=== PATIENT | female | born 1980 | race Caucasian/White ===

== ENCOUNTER 2018-07-02 22:21 | Observation (INO) | payer OTHER ==
[2018-07-02] MEDS ORDERED: NS 0.9% 1000 ML* 1,000 ML IV ONE (22:29)
[2018-07-02 22:50] LABS: ABS Basophils 0.1 10^3/ul (0-0.2); ABS Eosinophils 0.1 10^3/ul (0-0.6); ABS Lymphocytes 2.3 10^3/ul (1.0-4.8); ABS Monocytes 0.5 10^3/ul (0-0.8); ABS Neutrophils 4.8 10^3/ul (1.5-7.7); ABS Nucleated RBC 0 10^3/ul; Eosinophil % 1.4 % (0-6); Hematocrit 31 % (35-47); Hemoglobin 10.4 g/dl (12.0-16.0); Lymphocyte % 29.4 % (25-47); Mean Corpuscular HGB Conc 34 g/dl (31-36); Mean Corpuscular Hemoglobin 31 pg (27-31); Mean Corpuscular Volume 91 fL (80-97); Mean Platelet Volume 6.7 um3 (7.4-10.4); Nucleated Red Blood Cells % 0; Platelet Count 246 10^3/ul (150-450); Red Blood Count 3.35 10^6/ul (4.00-5.40); Red Cell Distribution Width 13 % (10.5-15); White Blood Count 7.8 10^3/ul (3.5-10.8)
--- NOTE | 2018-07-02 22:53 | ED ---
- HPI Summary HPI Summary: 37 yo F who was seen in ED earlier today for completed miscarriage and returns for increased vaginal bleeding. Transvaginal US today showed empty uterus, and endometrial stripe with no suggestion of retained products of conception. stopped developing at 8 weeks, and pt had US last week that had shown single IUP, so there is not concern for ectopic . Pt had pelvic exam by Dr. Dunne with evacuation of clots (no tissue recovered), and Dr. Dunne instilled 800mcg of misoprostol at 18:16pm after discussion of care with Dr. Rae. Pt was DC'd home with her and states she put her son to bed, and then soaked 3 pads provided by the ED in less than 2 hrs, and was weak and lying on the bathroom floor and felt that she might pass out, so returned to the ED for further evaluation. Denies abd pain or cramping. [id number] (with this completed miscarriage today). - History of Current Complaint Chief Complaint: EDVaginalBleeding Stated Complaint: VAGINAL BLEEDING/WEAKNESS Time Seen by Provider: 07/02/18 22:28 Hx Obtained From: Patient Chief Complaint: Vaginal Bleeding Onset/Duration: Started Hours Ago Timing: Constant Severity: Severe Current Severity: Severe Pain Intensity: 0 Location of Pain: None Character: None Aggravating Factors: Nothing Alleviating Factors: Nothing Associated Signs and Symptoms: Positive: Negative - Assessment Hx Now: No - completed Ab today, empty uterus on transvag US today - Allergies/Home Medications Allergies/Adverse Reactions: Allergies Allergy/AdvReac Type Severity Reaction Status Date / Time No Known Allergies Allergy Verified 07/02/18 22:28 PMH/Surg Hx/FS Hx/Imm Hx Previously Healthy: Yes Sensory History: Denies: Hx Legally Blind, Hx Deafness Opthamlomology History: Denies: Hx Legally Blind Neurological History: Denies: Hx Dementia - Surgical History Surgery Procedure, Year, and Place: [place] teeth Infectious Disease History: No Infectious Disease History: Denies: Traveled Outside the [place] in Last 30 Days - Family History Family History: arthritis, Alz - Social History 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 Negative: Diaphoretic Head/Face: Positive: Normal Head/Face Inspection Eyes: Positive: Normal ENT: Positive: Normal ENT inspection Neck: Positive: Supple Respiratory/Lung Sounds: Positive: Clear to Auscultation Cardiovascular: Positive: RRR Abdomen Description: Positive: Nontender, Soft. Negative: Distended, Guarding Bowel Sounds: Positive: Present Musculoskeletal: Positive: Strength/ROM Intact Neurological: Positive: Alert, Oriented to Person Place, Time, Facial Symmetry, Speech Normal Psychiatric: Positive: Normal Diagnostics - Vital Signs Vital Signs Temp Pulse Resp BP Pulse Ox 07/02/18 22:24 97.9 F 95 16 127/78 100 - Laboratory Lab Results: Lab Results 07/02/18 07/02/18 Range/Units 15:42 22:43 WBC 7.8 (3.5-10.8) 10^3/ul RBC 3.35 L (4.00-5.40) 10^6/ul Hgb 10.4 L (12.0-16.0) g/dl Hct 31 L (35-47) % MCV 91 (80-97) fL MCH 31 (27-31) pg MCHC 34 (31-36) g/dl RDW 13 (10.5-15) % Plt Count 246 (150-450) 10^3/ul MPV 6.7 L (7.4-10.4) um3 Neut % (Auto) 61.3 (38-83) % Lymph % (Auto) 29.4 (25-47) % [place] % (Auto) 7.1 H (0-7) % Eos % (Auto) 1.4 (0-6) % Baso % (Auto) 0.8 (0-2) % Absolute Neuts (auto) 4.8 (1.5-7.7) 10^3/ul Absolute Lymphs (auto) 2.3 (1.0-4.8) 10^3/ul Absolute Monos (auto) 0.5 (0-0.8) 10^3/ul Absolute Eos (auto) 0.1 (0-0.6) 10^3/ul Absolute Basos (auto) 0.1 (0-0.2) 10^3/ul Absolute Nucleated RBC 0 10^3/ul Nucleated RBC % 0 Blood Type Pending Antibody Screen Pending Result Diagrams: 07/02/18 22:43 07/02/18 22:43 Lab Statement: Any lab studies that have been ordered have been reviewed, and results considered in the medical decision making process. Re-Evaluation - Re-Evaluation First Eval Re-Evaluation Time: 00:05 Change: Worse Comment: dropped BP to 77/43 with HR 62 when discussing Hb and bleeding. Quickly recovered to BP 102/[address] Dunne at bedside, within 1-2 minutes. Second Eval Re-Evaluation Time: 00:30 Course/Dx - Course Course Of Treatment: 37 yo F with completed miscarriage and vag bleeding given misoprostol 800mcg per vagina at 1816 07/02/18, returned with increased bleeding tonight soaking 3 pads in 2 hrs. Initial Hb was 12.9, now 10.3. Pt still orthostatic after one liter of saline, and had one episode of hypotension. Soaked one pad wearing depends while in the ED 2.5 hrs. Pt will be given second liter of saline now, recheck CBC, and care to Dr. Mccoy pending those results. Dr. Rae will come in to evaluate pt in the ED. - Diagnoses Provider Diagnoses: Vaginal bleeding, Complete miscarriage, Anemia, Orthostatic hypotension - Provider Notifications Discussed Care Of Patient With: Sabine Rae - Await CBC results, hydrate as needed. Time Discussed With Above Provider: 22:35 - 23:30 results of CBC given to Dr. Rae. She advises would transfuse only if less than Hb 7. 0050: Dr. Rae notified that pt is orthostatic. She will come in to evaluate pt. - Critical Care Time Critical Care Time: 30-74 min - 30 mins Discharge - Sign-Out/Discharge Documenting (check all that apply): Sign-Out Patient Signing out patient TO: Humberto Mccoy - 00:30, 07/03/18 with additional NS infusing and second CBC pending and Dr. Rae's evaluation. - Discharge Plan Referrals: No Primary Care Phys,NOPCP [Primary Care Provider] -
[2018-07-02 23:00] LABS: INR 0.98 (0.77-1.02)
[2018-07-03] MEDS ORDERED: NS 0.9% 1000 ML* 1,000 ML BOLUS ONE (00:45)
[2018-07-03 01:16] LABS: ABS Basophils 0 10^3/ul (0-0.2); ABS Eosinophils 0 10^3/ul (0-0.6); ABS Lymphocytes 1.3 10^3/ul (1.0-4.8); ABS Monocytes 0.4 10^3/ul (0-0.8); ABS Nucleated RBC 0 10^3/ul; Eosinophil % 0.6 % (0-6); Hematocrit 23 % (35-47); Lymphocyte % 22.3 % (25-47); Mean Corpuscular HGB Conc 34 g/dl (31-36); Mean Corpuscular Hemoglobin 31 pg (27-31); Mean Corpuscular Volume 92 fL (80-97); Mean Platelet Volume 6.7 um3 (7.4-10.4); Nucleated Red Blood Cells % 0.1; Platelet Count 203 10^3/ul (150-450); Red Blood Count 2.55 10^6/ul (4.00-5.40); Red Cell Distribution Width 13 % (10.5-15); White Blood Count 5.7 10^3/ul (3.5-10.8)
[2018-07-03] MEDS ORDERED: ceFOXitin 2 GM IVPREMIX* 2 GM/50 ML BAG IVPB ONE (01:54)
[2018-07-03] MEDS: oxyCODONE/Acetamin 5/325 MG* TAB PO PRN ×2 (04:50→14:15)
[2018-07-03 05:32] LABS: ABS Basophils 0 10^3/ul (0-0.2); ABS Eosinophils 0 10^3/ul (0-0.6); ABS Lymphocytes 1.5 10^3/ul (1.0-4.8); ABS Monocytes 0.3 10^3/ul (0-0.8); ABS Neutrophils 3.3 10^3/ul (1.5-7.7); ABS Nucleated RBC 0 10^3/ul; Eosinophil % 0.4 % (0-6); Hematocrit 24 % (35-47); Hemoglobin 8.2 g/dl (12.0-16.0); Lymphocyte % 29.4 % (25-47); Mean Corpuscular HGB Conc 34 g/dl (31-36); Mean Corpuscular Hemoglobin 31 pg (27-31); Mean Corpuscular Volume 91 fL (80-97); Mean Platelet Volume 7.1 um3 (7.4-10.4); Nucleated Red Blood Cells % 0.1; Platelet Count 207 10^3/ul (150-450); Red Blood Count 2.63 10^6/ul (4.00-5.40); Red Cell Distribution Width 13 % (10.5-15); White Blood Count 5.2 10^3/ul (3.5-10.8)
--- NOTE | 2018-07-03 06:29 | HP ---
OUTPATIENT OBSERVATION: DATE OF ADMISSION: 07/03/18 ADMISSION DIAGNOSES: 1. Spontaneous at 8 weeks. 2. Anemia. 3. Orthostasis. CHIEF COMPLAINT: Bleeding. HISTORY OF PRESENT ILLNESS: The patient is a 37-year-old 2, para 1-0-1- 1, status post spontaneous loss. The patient was documented 8 and 2/ 7 weeks intrauterine gestational sac with a crown-rump length of 18 mm with no cardiac activity diagnosed on 06/29/18. The patient came to the ER twice now with heavy bleeding after loss. The patient has confirmed passage of intrauterine based on pelvic ultrasound, which was performed through the emergency room on 07/02/18 at 1530. No products of conception identified within the uterine cavity. The endometrial stripe was heterogenous at 12.8 cm. The patient initially came in with bleeding, was discharged to home; however, had a second episode of bleeding at home and re-presented to the emergency room. The hemoglobin on admission was 10.4 and rechecked 4 hours later revealed a hemoglobin of 8 after 2 L of IV fluids. The patient is being assessed by myself; see physical exam. PAST MEDICAL HISTORY: Unremarkable. PAST SURGICAL HISTORY: [place] teeth as a college student. MEDICATIONS: vitamins. ALLERGIES: No known drug allergies. PAST OBSTETRIC HISTORY: She had a normal spontaneous vaginal delivery in 2016. PHYSICAL EXAMINATION CONSTITUTIONAL: Pleasant female. Alert and oriented x3. No apparent distress. VITAL SIGNS: Temperature is 97.9, pulse rate is 95, blood pressure 127/78. Orthostatics were completed. Pulse rate lying down was 68, standing 96. Blood pressure 106/61 lying down, standing up 94/53. LUNGS: Clear to auscultation. CARDIOVASCULAR: Regular rate and rhythm. ABDOMEN: Nontender. Uterus is not palpable above the pubic symphysis. PELVIC EXAM: Large amount of clot removed, approximately 50 cc from the vagina. There is a small remnant of the sac sitting at the os, which was removed with the ring forceps. Bimanual exam: Uterus is nontender and anteverted with minimal bleeding, once clot, remnant of sac removed from the cervical os. EXTREMITIES: With good capillary refill. ASSESSMENT AND PLAN: The patient with spontaneous at 8 weeks and 2/7 days with orthostasis. The plan is to admit in outpatient observation, reassess CBC in approximately 3 to 4 hours, continue with IV fluids. If hemoglobin remains greater than 7, we will discharge to home in stable condition. If hemoglobin is less than 7, we will discuss with the patient blood products. Bleeding appears to be significantly decreased and we will send a portion of gestational sac to Pathology to confirm diagnosis. [id number]/[facility] [place] #: [id number] MTDD
[2018-07-03 12:42] VITALS: BP 98/44
--- NOTE | 2018-07-04 06:06 | DS ---
DISCHARGE SUMMARY: DATE OF ADMISSION: 07/03/18 DATE OF DISCHARGE: 07/03/18 HOSPITAL COURSE: This patient is a 37-year-old woman status post recent spontaneous . She was seen in the emergency department 1 day earlier. She returned early this morning with complaint of resumption of heavy bleeding and hemoglobin decreased from 12.9 to 10.4. After IV fluid hydration and continued observation, hemoglobin further dropped to 8. Ultrasound was only notable for some heterogeneous thickness in the endometrial cavity. Dr. Rae saw the patient in the emergency department and was able to remove tissue from the cervical os, which promptly significantly decreased the bleeding. Considering the significant recent bleeding, the patient was observed overnight and into the morning. The patient's next blood count was stable and throughout the morning, the patient was able to start ambulating without continued lightheadedness. She was discharged to home in stable condition on the day of admission. DISCHARGE PHYSICAL EXAMINATION: Vital Signs: Temperature 98.2, pulse 83, blood pressure 98/44. General: No acute distress, comfortable, lying in bed. Abdomen: Soft, nontender to palpation. No rebound or guarding. LABORATORY DATA: Discharge hemoglobin 8.2 and hematocrit 24, platelets 207. DISCHARGE INSTRUCTIONS: Discussed with the patient. She should return if there is any return of heavy vaginal bleeding, fevers, or chills, or symptomatic anemia with lightheadedness with ambulation. She will follow up in our office within the next few weeks or sooner if there are any problems. DISCHARGE DIAGNOSIS: Spontaneous with hemorrhage. DISCHARGE MEDICATIONS: In the reconciliation in the computer. [id number]/[facility] #: [id number] MTDD
== END 2018-07-03 15:07 | disposition home or self-care (01) ==
LOC: ED 22:21 → SSU 07-03 01:41
PROVIDERS: ADMIT Obstetrics & Gynecology; ATTEND Obstetrics & Gynecology
DX: O03.9 Complete or unspecified spontaneous abortion without complication (principal); D64.9 Anemia, unspecified; I95.1 Orthostatic hypotension
CPT/HCPCS: 36415; 80053; 85025; 85610; 85730; 86850; 86900; 86901; 88305; 96365; 96366; 99283; A9270-GY; G0378; J0694

== ENCOUNTER → 2018-07-02 | Emergency (ER) | payer OTHER ==
[~2018-07-02] MED LIST: Misoprostol TAB* 200 MCG VAGINAL ONE; NS 0.9% 1000 ML* 2,000 ML IV ONE; fentaNYL* 50 MCG/ML 2 ML VIAL (100 MCG VIAL) ONE
--- NOTE | 2018-07-02 15:07 | ED ---
- HPI Summary HPI Summary: A 37 y/o F (A1) presents to ED with c/o severe vaginal bleeding onset approx 1400. Pt noticed some mild spotting yesterday. She states passing 6 -7 ping-pong ball" sized clots and 1 clot approx. the size of a small tennis ball. She has soaked through three pads within an hour. She had an U/S on 06/29 that showed the fetus stopped developing at 8 weeks and no cardiac activity detected. Natural conception. She is scheduled to be seen by [facility] again on . She goes to to [facility] [place]. Associated sx: abd cramping. Denies vomiting. She took 600 mg ibuprofen at approx noon today. She last ate and drank around 1130, mac and cheese. SHx: wisdom teeth. vitamin daily in evening. NKDA. No prior blood transfusions, but is OK with having one if needed. Blood type is Rh positive. Vital signs while in room: HR: 98 bpm, BP: 108/69. 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 Rae Chief Complaint: Concern for Embryonic Dem, Vaginal Bleeding Onset/Duration: Started Hours Ago, Atraumatic, Still Present Timing: Constant Severity: Moderate Current Severity: Severe Pain Intensity: 6 - out of 10 Location of Pain: Suprapubic Character: Other: - aching Aggravating Factors: Nothing Alleviating Factors: Nothing Associated Signs and Symptoms: Positive: Other: - abd cramping. Negative: Vomiting - Assessment Hx Now: Yes - but no cardiac activity on 06/29/18 - Allergies/Home Medications Allergies/Adverse Reactions: Allergies Allergy/AdvReac Type Severity Reaction Status Date / Time No Known Allergies Allergy Verified 07/02/18 22:28 Home Medications: Home Medications Vit 108/Iron/Folic AC [ One Tablet] 1 tab PO DAILY 07/02/18 [ History Confirmed 07/02/18] PMH/Surg Hx/FS Hx/Imm Hx Previously Healthy: Yes Opthamlomology History: Denies: Hx Legally Blind EENT History: Denies: Hx Deafness Neurological History: Denies: Hx Dementia - Surgical History Surgery Procedure, Year, and Place: [place] teeth Infectious Disease History: No Infectious Disease History: Denies: Traveled Outside the [place] in Last 30 Days - Family History Known Family History: Positive: Other Family History: arthritis, Alzheimer's - Social History Occupation: Employed Full-time, Student Lives: With Family Alcohol Use: Rare Hx Substance Use: No Hx Tobacco Use: No Review of Systems Constitutional: Negative Cardiovascular: Negative Respiratory: Negative Positive: Abdominal Pain - "cramping". Negative: Vomiting Positive: discharge - vaginal bleeding, other - pos: Skin: Negative Neurological: Negative Psychological: Normal All Other Systems Reviewed And Are Negative: Yes Physical Exam - Summary Physical Exam Summary: Appearance: Well-appearing, minimal pain distress, well-nourished Skin: Warm, color reflects adequate perfusion, dry Head: Normal Head/Face inspection, atraumatic Eyes: Conjunctiva clear ENT: Normal inspection Neck: Supple, no nodes, no JVD Respiratory: Lungs clear, normal breath sounds, no respiratory distress Cardio: RRR, No murmur, pulses normal, brisk capillary refill Abdomen: Soft, nontender Bowel sounds: Present Musculoskeletal: Strength Intact/ROM intact, no calf tenderness, no edema. 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 Uterus nonpalpable above pelvic brim, nontender. Large and multiple clots and blood cleared from vagina. No tissue noted in vagina or clots removed. No trauma noted intravaginally Cervix not well visualized due to bleeding, admits 1 finger. Adnexae no masses, non tender Misoprostol 800mcg instilled in vagina per Dr. Rae - Physical Exam Triage Information Reviewed: Yes Vital Signs Reviewed: Yes Diagnostics - Vital Signs Vital Signs Temp Pulse Resp BP Pulse Ox 07/02/18 14:44 97.9 F 136 18 128/76 99 - Laboratory Result Diagrams: 07/02/18 15:42 07/02/18 15:42 Lab Statement: Any lab studies that have been ordered have been reviewed, and results considered in the medical decision making process. - Ultrasound No standard instances Ultrasound Interpretation Completed By: Radiologist Summary of Ultrasound Findings: TRANSVAG U/S: IMPRESSION: 1. There is no live intrauterine gestation or products of conception identified. Diagnostic possibilities include spontaneous or ectopic . Correlation to clinical symptoms and trending beta hCG is advised. 2. The endometrial stripe is heterogeneous and thickened measuring 2.8 cm in greatest dimension but there is no vascularity to raise concern for retained products of conception. If clinically warranted follow-up pelvic ultrasound can be acquired to ascertain resolution. ED provider has reviewed this report. Re-Evaluation - Re-Evaluation 1 Re-Evaluation Time: 17:29 Change: Unchanged Comment: Internal pelvic exam done at this time (see PE): copious clots. Bleeding decreased after clots removed. Misoprostal 800 mcg placed into vagina without problem. Pt tolerated procedure. Course/Dx - Course Course Of Treatment: Pt is a 37 y/o F (A1) presenting with severe vaginal bleeding onset approx 1400. She has soaked through three pads within an hour and has expelled multiple clots. U/S on 06/29 suggested she fetus development ceased at 8 weeks, inconsistent with dates and not cardiac activity. Natural conception. Labs are unremarkable. Transvag U/S shows "1. There is no live intrauterine gestation or products of conception identified. Diagnostic possibilities include spontaneous or ectopic . Correlation to clinical symptoms and trending beta hCG is advised. 2. The endometrial stripe is heterogeneous and thickened measuring 2.8 cm in greatest dimension but there is no vascularity to raise concern for retained products of conception. If clinically warranted follow-up pelvic ultrasound can be acquired to ascertain resolution.". Allergies noted. Pt medications reviewed this visit. Care was discussed with Dr. Rae who advises pt has completed miscarriage, spontaneously. US prior had shown signle IUP, so no concern for ectopic. US today shows uterine contents empty, and endometrial stripe suggests no concern for retained products of conception. Multiple clots evacuated from vagina with pelvic exam, and bleeding less at time of DC. Misoprostol 800mcg instilled to aid control of bleeding per Dr. Rae. - Differential Diagnosis/HQI/PQRI: Spontaneous , /Embryonic Demise, Retained Products of Conception - Diagnoses Provider Diagnoses: Complete miscarriage - Provider Notifications Discussed Care Of Patient With: Sabine CHARLES Time Discussed With Above Provider: 16:58 Instructed by Provider To: Other - Recommends internal pelvic exam to check for products of conception. The U/S suggest products of conception passed completely , and there is proof it was an intrauterine with prior US. Send products for additional analysis. Recommends misoprostol 800 micrograms into vagina. Pt requires f/u in 4 weeks for post-miscarraige, and nothing in vagina ( douche, tampon, sex) until after follow-up visit. Discharge - Sign-Out/Discharge Documenting (check all that apply): Patient Departure - DC - Discharge Plan Condition: Stable Disposition: HOME Patient Education Materials: Miscarriage (ED) Forms: *Work Release Referrals: Sabine Rae MD [Medical Doctor] - 07/30/18 (Definite follow up with Dr. Rae in 4 weeks. ) Additional Instructions: Dr. Dunne instilled 4 x 200mcg tablets of misoprostol to help decrease the uterine bleeding. Nothing should go in your vagina (no tampons, no douching, no intercourse) for four weeks until you are seen by Dr. Rae. Return to the ER if you have any new or worsening symptoms. - Billing Disposition and Condition Condition: STABLE Disposition: Home - Attestation Statements Document Initiated by Scribe: Yes Documenting Scribe: Steph Reese Provider For Whom Neida is Documenting (Include Credential): Dr. Olga Dunne MD Scribe Attestation: Steph Donovan, scribed for Dr. Olga Dunne MD on 07/08/18 at 0035. Scribe Documentation Reviewed: Yes Provider Attestation: The documentation as recorded by the Steph carrington accurately reflects the service I personally performed and the decisions made by me, Dr. Olga Dunne MD
[2018-07-02 16:05] LABS: INR 0.94 (0.77-1.02)
--- NOTE | 2018-07-02 16:34 | RAD ---
HISTORY: Vaginal bleeding in a woman who is 11 weeks by last menstrual period COMPARISONS: None TECHNIQUE: Multiple transverse and longitudinal ultrasound images were obtained of the pelvis using grayscale, color flow, spectral and M-mode sonographic imaging. FINDINGS: UTERUS: The uterus is normal in shape, size, contour, and echotexture. GESTATION: The uterus measures approximately 9.0 x 4.7 x 5.7 cm. There is no definite endoluminal gestational sac identified. There are no products of conception identified. The endometrial stripe is heterogeneous and thickened measuring up to 2.8 cm in thickness. There is no definite vascularity overlying the thickened endometrial stripe. CUL-DE-SAC: There is no free fluid within the cul-de-sac. RIGHT OVARY: The right ovary measures 3.2 x 1.3 x 2.1 cm. LEFT OVARY: The left ovary measures 2.7 x 1.6 x 2.1 cm. And the left ovary there is an avascular echogenic focus measuring 1.7 cm in greatest dimension. IMPRESSION: 1. There is no live intrauterine gestation or products of conception identified. Diagnostic possibilities include spontaneous or ectopic . Correlation to clinical symptoms and trending beta hCG is advised. 2. The endometrial stripe is heterogeneous and thickened measuring 2.8 cm in greatest dimension but there is no vascularity to raise concern for retained products of conception. If clinically warranted follow-up pelvic ultrasound can be acquired to ascertain resolution.
[2018-07-02 17:21] LABS: ABS Basophils 0 10^3/ul (0-0.2); ABS Eosinophils 0.1 10^3/ul (0-0.6); ABS Lymphocytes 1.6 10^3/ul (1.0-4.8); ABS Monocytes 0.5 10^3/ul (0-0.8); ABS Neutrophils 5.2 10^3/ul (1.5-7.7); ABS Nucleated RBC 0 10^3/ul; Eosinophil % 1.4 % (0-6); Hematocrit 38 % (35-47); Hemoglobin 12.9 g/dl (12.0-16.0); Lymphocyte % 21.9 % (25-47); Mean Corpuscular HGB Conc 34 g/dl (31-36); Mean Corpuscular Hemoglobin 31 pg (27-31); Mean Corpuscular Volume 92 fL (80-97); Mean Platelet Volume 7.4 um3 (7.4-10.4); Nucleated Red Blood Cells % 0; Platelet Count 263 10^3/ul (150-450); Red Blood Count 4.17 10^6/ul (4.00-5.40); Red Cell Distribution Width 13 % (10.5-15); White Blood Count 7.5 10^3/ul (3.5-10.8)
[2018-07-02 17:37] LABS: EGFR Non-African American 94.7 (>60)
[2018-07-02 18:19] VITALS: BP 128/78
== END | disposition home or self-care (01) ==
LOC: EDSEX → ED 14:37
DX: O03.9 Complete or unspecified spontaneous abortion without complication (principal)
CPT/HCPCS: 36415; 76817; 80053; 83605; 84702; 85025; 85610; 85730; 88305; 96360; 99283; A9270-GY; J3010